=== PATIENT | male | born 1985 | race African-American/Black ===

== ENCOUNTER 2022-07-31 08:24 | Emergency (ER) | payer SELFPAY ==
[~2022-07-31] VITALS: Ht 180.3 cm; Wt 85.5 kg
[2022-07-31] MEDS ORDERED: VALA1TAB5 PO (09:59)
[2022-07-31] MEDS ORDERED: cefTRIAXone 500MG VIAL (J0696 PER 250MG) IM ONE (10:00)
[2022-07-31] MEDS ORDERED: LIDOCAINE 1% SDV 5ML VIAL DILUENT ONE (10:00)
[2022-07-31 11:11] VITALS: BP 144/93
[2022-07-31 11:58] LABS: GC DNA AMPLIFICATION NEGATIVE (NEGATIVE)
== END 2022-07-31 11:14 | disposition home or self-care (01) ==
LOC: M ED 08:24
DX: B00.9 Herpesviral infection, unspecified (principal); K64.9 Unspecified hemorrhoids
CPT/HCPCS: 87661; 87810; 87850; 96372; 99283; J0696